=== PATIENT | male | born 1990 | race American Indian/Alaskan Native ===

== ENCOUNTER 2019-11-18 13:56 | Emergency (ER) | payer OTHER ==
[2019-11-18] MEDS ORDERED: ZIPRASIDONE MESYLATE 20 MG VIAL IM ONE ×2 (14:07→16:10)
--- NOTE | 2019-11-18 14:12 | Emergency Department Report ---
<ALEJANDRA BURCH - Last Filed: 11/18/19 15:18> ED Psych HPI - General Stated Complaint: MENTAL HEALTH Time Seen by Provider: 11/18/19 14:09 - History of Present Illness Initial Comments: Patient is 29 years old male, unknown to me and there is no previous records in the hospital. Patient brought to the emergency room by police from his work place. Police stated that patient work for [employer]. Patient colleagues noticed patient became more erratic and start running around the building and screaming. Upon arrival to the ER patient is very agitated and handcuffed by the police. Patient is screaming and shouting. Patient is obviously responding to internal stimuli. Patient given Geodon 20 mg IM for chemical sedation. Patient is unable to provide any information at this moment. MD Complaint: altered mental status - Related Data Allergies Allergy/AdvReac Type Severity Reaction Status Date / Time No Known Allergies Allergy Unverified 11/18/19 15:52 ED Review of Systems Comment: Unobtainable due to pts medical conditions ED Physical Exam - General General appearance: alert, in no apparent distress, other (Very agitated.) - Head Head exam: Present: atraumatic, normocephalic, normal inspection - ENT ENT exam: Present: normal exam, normal orophraynx, mucous membranes moist - Respiratory Respiratory exam: Present: normal lung sounds bilaterally - Cardiovascular Cardiovascular Exam: Present: normal heart sounds - Neurological Exam Neurological exam: Present: alert, altered - Psychiatric Psychiatric exam: Present: agitated, anxious, manic - Skin Skin exam: Present: warm, intact ED Disposition Clinical Impression: Bipolar disorder, Psychosis, Agitated, Medical clearance for psychiatric admission Disposition: [id number] PSY HOSP/PSY UNIT Condition: Stable <AGNES VASQUEZ - Last Filed: 11/18/19 19:15> ED Review of Systems ROS: Stated complaint: MENTAL HEALTH Other details as noted in HPI ED Course Vital Signs 11/18/19 18:50 Temperature 98.5 F Pulse Rate 96 H Respiratory 20 Rate Blood Pressure 141/91 [Right] O2 Sat by Pulse 96 Oximetry ED Medical Decision Making - Lab Data Result diagrams: 11/18/19 15:35 11/18/19 15:35 Critical care attestation.: If time is entered above; I have spent that time in minutes in the direct care of this critically ill patient, excluding procedure time. ED Disposition Is pt being admited?: No Time of Disposition: 19:15
[2019-11-18 15:42] LABS: Basophils % (Auto) 0.8 % (0.0-1.8); Eosinophils # (Auto) 0.1 K/mm3 (0.0-0.4); Eosinophils % (Auto) 2.2 % (0.0-4.3); Hematocrit 40.5 % (35.5-45.6); Hemoglobin 13.4 gm/dl (11.8-15.2); Lymphocytes # (Auto) 1.9 K/mm3 (1.2-5.4); Mean Corpuscular HGB Conc 33 % (32-34); Mean Corpuscular Volume 85 fl (84-94); Monocytes # (Auto) 0.6 K/mm3 (0.0-0.8); Monocytes % (Auto) 11.7 % (0.0-7.3); Platelet Count 181 K/mm3 (140-440); Red Blood Count 4.75 M/mm3 (3.65-5.03); Red Cell Distribution Width 13.9 % (13.2-15.2)
[2019-11-18 15:51] LABS: Bilirubin,Urine NEG (Negative); Blood,Urine NEG (Negative); Color,Urine Yellow (Yellow); Mucus,Urine FEW /HPF; Urobilinogen,Urine < 2.0 mg/dL (<2.0)
[2019-11-18 16:00] LABS: Amphetamine Screen,Urine PRESUMPTIVE NEGATIVE; Benzodiazepines Screen,Urine PRESUMPTIVE NEGATIVE; Cocaine Screen,Urine PRESUMPTIVE NEGATIVE; Methadone Screen,Urine PRESUMPTIVE NEGATIVE; Opiate Screen,Urine PRESUMPTIVE NEGATIVE
[2019-11-18 16:03] LABS: BUN/Creatinine Ratio 17; Blood Urea Nitrogen 17 mg/dL (9-20); Calcium 9.5 mg/dL (8.4-10.2); Hemolysis Index 7
[2019-11-18 16:20] LABS: Cannabinoid Screen,Urine PRESUMPTIVE POSITIVE
[2019-11-18 19:57] VITALS: BP 152/92
[2019-11-18] MEDS ORDERED: ALPRAZolam 1 MG TAB PO ONE (23:37)
== END 2019-11-19 00:51 ==
LOC: EEVIPCON 13:56 → ED 13:56
DX: F29 Unspecified psychosis not due to a substance or known physiological condition (principal); F31.9 Bipolar disorder, unspecified; Z13.30 Encounter for screening examination for mental health and behavioral disorders, unspecified; Z88.6 Allergy status to analgesic agent
CPT/HCPCS: 36415; 80048; 80307; 81001; 85025; 96372; 99285; J3486; 80320; G0480